=== PATIENT | male | born 1985 | race Caucasian/White ===

== ENCOUNTER 2017-04-21 21:52 | Inpatient (IN) | payer SELFPAY ==
[~2017-04-21] VITALS: Ht 177.8 cm; Wt 85.0 kg
--- NOTE | ~2017-04-21 | ER ---
PATIENT'S NAME: ROYA GRAY [facility] AGE: 31 Y [address] ROOM: [place] [address] [place] [facility] [place] DATE: 04/21/2017 ER/Outpatient Report DISCHARGE DATE: FAMILY PHYSICIAN: PHYSICIAN, UNKNOWN ATTENDING PHYSICIAN: CHANELLE SHEPHERD Admission date and time documented on the medical record. I saw the patient at 2200 hours. CHIEF COMPLAINT: Desire for detox. HISTORY OF PRESENT ILLNESS: This patient is a 31-year-old male, who over the past 24 hours has used a bowl of meth via a pipe, drank a quart of vodka, and did marijuana. He does do meth as frequent as he can, does drink vodka pretty much daily, use marijuana daily, chews tobacco occasionally. He does have some dizziness. He has had some alcohol-induced hallucinations, visual and auditory. He does have seizures with detox. He does have a past history of chronic back pain. Denies being suicidal or having suicidal ideation or threats or attempts. No recent coughs, colds, flus, fever, chills, or sweats. No chest pain. He does have some shortness of breath. No abdominal pain, nausea, vomiting, or diarrhea. No incontinence. No urinary symptoms. No joint or muscle swelling, redness, or pain. No skin eruptions or rash. No lightheadedness, dizziness, syncope, or near syncope. No fall or trauma. No headache, eyes, ears, nose, throat, neck, or spine pain. He does have a history of seizures with detox, also has alcohol-related visual and auditory hallucinations. HOME MEDICATIONS: None. ALLERGIES: NONE. SOCIAL HISTORY: Occasionally chews tobacco. Nonsmoker. Does use marijuana daily. Does use alcohol on a regular basis. Heavily uses meth as often as he can. SIGNIFICANT PAST MEDICAL HISTORY: Alcohol abuse; tobacco abuse; marijuana abuse; polysubstance abuse with methamphetamine, and marijuana; alcohol withdrawal seizures; alcoholic-induced auditory and visual hallucinations; chronic back pain; depression. OPERATIONS: None. PATIENT'S NAME: ROYA GRAY [facility] AGE: 31 Y [address] ROOM: [place] [address] [place]: [facility] [place] DATE: 04/21/2017 ER/Outpatient Report DISCHARGE DATE: FAMILY PHYSICIAN: PHYSICIAN, UNKNOWN ATTENDING PHYSICIAN: CHANELLE SHEPHERD REVIEW OF SYSTEMS: All systems reviewed by me are negative with the exception of those discussed in the history of present illness. PHYSICAL EXAMINATION: VITAL SIGNS: Temperature 96.3 tympanic, pulse 98, respirations 22, blood pressure 113/82, O2 saturation on room air is 96%. HEAD: Normocephalic. No abrasion, contusion, laceration, swelling of the scalp or face. EYES: Extraocular muscles intact. PERRL. EARS: Clear TMs bilaterally. NOSE AND THROAT: Clear. Mucous membranes moist. Breath smells of alcoholic beverage. NECK: No nuchal rigidity. No thyromegaly or cervical adenopathy. No tenderness. SPINE: Nontender. No deformity. LUNGS: Clear. Good air flow. No rales, rhonchi, or wheezes. HEART: Regular. Pulses are palpable. The patient is mildly tachypneic. ABDOMEN: Soft, nondistended, nontender. Good bowel tones. No organomegaly or abnormal mass palpable. No CVA tenderness. EXTREMITIES: No peripheral edema, cyanosis, or deformity. NEUROVASCULAR: Intact. SKIN: Clear. No skin eruptions or rash. LABORATORY DATA: Urinalysis was clear. Urine drug screen is positive for methamphetamine, marijuana. Medical blood alcohol was 0.317. Serum acetaminophen and salicylate levels were negative. CMS was normal except for low potassium 3.3, low calcium 7.9. White count 6400, 38 segs, 51 lymphocytes, 9 monos, 1 eo, 1 baso, hemoglobin 16 with hematocrit 45.7, platelet count is 209,000. EMERGENCY DEPARTMENT COURSE: I did start the patient on IV normal saline and fluids. IMPRESSION: 1. Acute alcohol intoxication and alcohol abuse with alcohol-induced visual and auditory hallucinations. 2. Meth abuse with positive methamphetamines on urine drug screen. 3. Marijuana abuse with positive marijuana on urine drug screen. 4. Depression. 5. Chronic back pain. 6. History of seizures with alcohol withdrawal. PLAN: PATIENT'S NAME: ROYA GRAY [facility] AGE: 31 Y [address] ROOM: [place] [address] [place]: [facility] [place] DATE: 04/21/2017 ER/Outpatient Report DISCHARGE DATE: FAMILY PHYSICIAN: PHYSICIAN, UNKNOWN ATTENDING PHYSICIAN: CHANELLE SHEPHERD Discussed the patient with Dr. Shepherd, hospitalist. The patient will be admitted to [facility] for detox. Started the patient on IV normal saline and fluids. MD ARCHANA CRAMER/hayl /[id number] d: 04/22/17 0329 t: 04/22/17 1808, OUTPATIENT REPORT
--- NOTE | ~2017-04-21 | HP ---
PATIENT'S NAME: ROYA GRAY [facility] AGE: 31 Y [address] ROOM: [place] [address] LOCATION: [facility] [place] ADMIT DATE: 04/21/2017 History & Physical DISCHARGE DATE: FAMILY PHYSICIAN: PHYSICIAN, UNKNOWN ATTENDING PHYSICIAN: CHANELLE SHEPHERD DATE OF SERVICE: CHIEF COMPLAINT: Intoxication of amphetamine and alcohol. HISTORY OF PRESENT ILLNESS: This is a 31-year-old male who is currently sleepy and does not want to answer any questions or give any history. The story is obtained from the ER physician and the story is that the patient has a longstanding history of using amphetamine, cannabinoid, alcohol, and also chews tobacco. The story is that the patient is intoxicated with amphetamine, alcohol, and also cannabinoid and patient came here voluntarily for detoxification. The patient denies any suicidal ideation. The patient also has history of alcohol withdrawal seizure in the past, according to the medical records. According to the ER, the patient denies any chest pain, shortness of breath, blurry vision, being aggressive, or cough. REVIEW OF SYSTEMS: As mentioned in history of present illness. All other systems were reviewed and were negative except those mentioned in history of present illness. PAST MEDICAL HISTORY: 1. Polysubstance abuse. 2. Alcohol use disorder. 3. Depression. ALLERGIES: ACCORDING TO THE LAST H AND P, NONE. HOME MEDICATIONS: According to the last H and P, none; however, has to be addressed with the patient's pharmacy in the morning by the medical staff once it is reconciled. PAST SURGICAL HISTORY: PATIENT'S NAME: ROYA GRAY [facility] AGE: 31 Y [address] ROOM: [address] [address] LOCATION: [facility] [place] ADMIT DATE: 04/21/2017 History & Physical DISCHARGE DATE: FAMILY PHYSICIAN: PHYSICIAN, UNKNOWN ATTENDING PHYSICIAN: CHANELLE SHEPHERD According to the last H and P, had multiple head injuries, but did not require any surgery in the past. FAMILY HISTORY: According to the last H and P, no history of premature coronary artery disease in the family. SOCIAL HISTORY: According to the H and P from last time, the patient chews tobacco on a daily basis and also longstanding history of alcohol and polysubstance abuse, that is diagnosed on this admission. The patient also did tell the ER that the patient has been using amphetamine for a longtime. PHYSICAL EXAMINATION: VITAL SIGNS: Temperature 97.5, heart rate 91, respirations 20, blood pressure 107/65, and saturation 96% on room air. GENERAL APPEARANCE: The patient is sleepy and does not want to answer any questions or give any history. The patient is not in acute distress. HEENT: He has remarkable pinpoint pupil bilaterally of equal size about 2-mm. The pupils are reactive to light bilaterally. Nasal turbinates are normal bilaterally. Anicteric sclerae. Oral mucosa is moist. NECK: No JVD. CARDIOVASCULAR: Regular rate and rhythm. No murmur, no rubs, no gallops. Normal S1, S2. RESPIRATORY: Clear to auscultation. No rales, no rhonchi, no wheezing, no crackles. ABDOMEN: Soft, nontender, nondistended, bowel sounds present, and no mass. EXTREMITIES: No edema in upper or lower extremities. NEUROLOGICAL: Cannot assess a full neurological exam because the patient is sleepy and does not really want to cooperate. I do appreciate pinpoint pupil bilaterally of equal size about 2-mm that is reactive to light. SKIN: No ulcer, no rash, no cyanosis. LABORATORY DATA: Troponin less than 0.04. CPK 155. White blood cells 6.4, hemoglobin 16, hematocrit 45.7, platelet 209. Glucose 86, BUN 14, creatinine 1.0, sodium 142, potassium 3.3, chloride 106, CO2 29, calcium 7.9, total protein 7.3, albumin 3.8, AST 39, ALT 38, alkaline phosphatase 118, total bilirubin 0.4, anion gap 10.3, globulin 3.5, GFR more than 60. Urinalysis show negative for UTI. Urine drug screen positive for amphetamine and also positive for cannabinoids. Alcohol level 0.317. CK-MB 1.4. Tylenol level less than 2, aspirin level less than 2.8. TSH of 1.380. IMAGING STUDIES: EKG, currently is pending. PATIENT'S NAME: ROYA GRAY [facility] AGE: 31 Y [address] ROOM: [place] [address] LOCATION: [facility] [place] ADMIT DATE: 04/21/2017 History & Physical DISCHARGE DATE: FAMILY PHYSICIAN: PHYSICIAN, UNKNOWN ATTENDING PHYSICIAN: CHANELLE SHEPHERD ASSESSMENT AND PLAN: 1. Regarding his acute encephalopathy, secondary to polysubstance abuse: The patient tested positive for amphetamine and cannabinoids, but he also has bilateral pinpoint pupils of equal size about 2-mm that is reactive to light. I already contacted the Poison Control given that our urinary drug screen showed negative opioids, I am concerned about opioid use that caused pinpoint pupils. Poison Control did mention that the urine drug screen for opioids is not a comprehensive panel; therefore, there still could be some opioid use that were not detected on the urine drug screen and recommended to try intravenous Narcan; therefore, I will be giving the patient 0.4 mg intravenous Narcan right now and can repeat as needed to see his response. Put him on ETCO2 monitor at all times. I will have the patient change to a room that is closer to the nurses' station in the morning depending on bed situation. For his amphetamine use, watch closely for mental status change, and also put him on the telemetry monitoring to monitor any event of arrhythmia. Please touch-base with Poison Control again in the morning for followup. Cardiac enzymes are negative the first set. Regarding his alcohol intoxication, the patient is at high-risk of alcohol withdrawal, I will start him on CIWA protocol. Regarding his cannabinoid overuse, nothing to do but treat symptomatically as before. Intravenous fluids for hydration. Further plan will depend on clinical course. I will also get a CT of the head without contrast to make sure there is nothing going on in the brain that could cause his encephalopathy. 2. Regarding his hypokalemia: Replace with intravenous potassium chloride. 3. Regarding his depression: Once the patient is cleared from alcohol withdrawal could consider consulting Psychiatry to see if a transfer to [facility] is warranted. 4. Regarding his deep vein thrombosis prophylaxis: The patient is on subcutaneous Lovenox. 5. Regarding his code status: He is a full code. Time spent in care on the day of admission was 35 minutes where 20 minutes was spent on coordination of the care with the Poison Control and also on the interview and physical examination. The remainder of the time was spent on chart review and talking to the ER department and also going over the plan of care with the nurse. Further plan will depend on clinical course. PATIENT'S NAME: ROYA GRAY [facility] AGE: 31 Y [address] ROOM: [address] [address] LOCATION: [facility] [place] ADMIT DATE: 04/21/2017 History & Physical DISCHARGE DATE: FAMILY PHYSICIAN: PHYSICIANSTEPHEN ATTENDING PHYSICIAN: CHANELLE SHEPHERD MD SHAYAN LUGO/laura /[id number] D: [id number] T: [id number] HISTORY & PHYSICAL
--- NOTE | ~2017-04-21 | DS ---
PATIENT'S NAME: ROYA GRAY [facility] AGE: 31 Y [address] ROOM: [place] [id number] [place] [facility] [place]: 04/21/2017 Discharge Summary DISCHARGE DATE: 04/25/2017 FAMILY PHYSICIAN: Physician, Unknown ATTENDING PHYSICIAN: Angelo Lopes ADMITTING DIAGNOSIS: Alcohol intoxication. DISCHARGE DIAGNOSIS: Alcohol intoxication, monitored for withdrawal. SECONDARY DIAGNOSES: 1. Polysubstance use. 2. Tobacco use. 3. Depression. PROCEDURE PERFORMED: Head CT. CONSULTATION: Psychiatry. HISTORY OF PRESENT ILLNESS: The patient is a 31-year-old gentleman with a past medical history of tobacco abuse, alcohol abuse, alcohol withdrawal seizure, and use of polysubstance abuse, who presents here, intoxicated with amphetamine, alcohol, and marijuana. The patient also presented for voluntary detoxification. The patient did not have any suicidal ideation on admission. HOSPITAL COURSE: Initially, the patient was in acute encephalopathy secondary to alcohol intoxication, polysubstance use. The patient was started on IV fluids and placed on CIWA protocol. The patient's symptoms improved. The patient was monitored for alcohol withdrawal as the patient has had history of seizure secondary to alcohol withdrawal. During stay, the patient's need for Ativan decreased. The patient was seen by Psych and recommended for transfer when the patient was stable. In the past 2 days, the patient's CIWA score was low. The patient was transferred to [facility]. CONDITION: Stable. DISPOSITION: The patient is going to go to [facility] by voluntarily. His friend's are going to take him up. DISCHARGE MEDICATION: Please see MAR. DISCHARGE INSTRUCTION: To follow up with [facility]. FOLLOWUP: Follow up with [facility]. PATIENT'S NAME: ROYA GRAY [facility] AGE: 31 Y [address] ROOM: [address] [address] [place] [facility] [place]: 04/21/2017 Discharge Summary DISCHARGE DATE: 04/25/2017 FAMILY PHYSICIAN: Physician, Unknown ATTENDING PHYSICIAN: Angelo Lopes PHYSICAL EXAMINATION: VITAL SIGNS: Stable. GENERAL APPEARANCE: The patient is alert and awake in no acute distress. HEART: Regular rate and rhythm. No murmurs, rubs, or gallops. CHEST: Clear to auscultation bilaterally. ABDOMEN: Soft, nontender, nondistended. Bowel sounds present. SKIN: Warm to touch. HEPATOLOGY PHYSICIAN: Alert and oriented x3. Motor and sensory grossly intact. MD GUERA HAYWARD/laura /[id number] d: 04/26/17621 t: 04/26/17 0935, DISCHARGE SUMMARY
[~2017-04-21 21:52] MED LIST: ADVIL200 MG PO; CELEXA20 MG PO; DILANTIN100 MG PO; NEURONTIN300 MG PO; NICORETTE4 MG PO; PHENYTOIN SODI300 MG PO; TREXAN (REVIA)50 MG PO; VISTARIL50 MG PO
[2017-04-21 22:41] LABS: BASOPHIL # 0.1 K/uL (0.0-0.2); BASOPHIL % 0.9 %; EOSINOPHIL # 0.1 K/uL (0.0-0.5); EOSINOPHIL % 0.9 %; HEMATOCRIT 45.7 % (37.0-53.0); IMMATURE GRANULOCYTE % 0.3 %; LYMPHOCYTE # 3.3 K/uL (0.8-4.0); LYMPHOCYTE % 50.9 %; MCV 94.2 fl (83.0-98.0); MONOCYTE # 0.6 K/uL (0.0-1.0); MONOCYTE % 8.9 %; MPV 9.5 fl (9.4-12.4); NEUTROPHIL # (ANC) 2.4 K/uL (1.4-9.0); NEUTROPHIL % 38.1 %; NRBC % 0 /100WBC (0-0.00); PLATELET COUNT 209 K/uL (150-450); RBC 4.85 M/uL (4.00-6.00); RDW-CV 12.8 % (11.9-14.6); WBC 6.4 K/uL (4.0-11.0)
[2017-04-21 23:01] LABS: BILIRUBIN URINE NEGATIVE (NEGATIVE); BLOOD URINE NEGATIVE /UL (NEGATIVE); COLOR URINE YELLOW (YELLOW); GLUCOSE URINE NEGATIVE (NEGATIVE); KETONE URINE NEGATIVE (NEGATIVE); LEUKOCYTES URINE NEGATIVE /UL (NEGATIVE); NITRITE URINE NEGATIVE (NEGATIVE); PH URINE 6.5 (4.0-8.0); PROTEIN URINE NEGATIVE (NEGATIVE); SPEC GRAVITY URINE 1.005 (1.003-1.035); TURBIDITY URINE CLEAR (CLEAR); UROBILINOGEN URINE NORMAL (NORMAL)
[2017-04-21 23:02] LABS: ALBUMIN 3.8 gm/dL (3.5-5.0); ALK PHOS 118 IU/L (33-138); ALT 38 IU/L (12-78); ANION GAP 10.3 (10.0-19.0); AST 39 IU/L (10-40); BLOOD UREA NITROGEN 14 mg/dL (6-24); CALCIUM 7.9 mg/dL (8.5-10.5); CHLORIDE 106 mMol/L (96-110); CO2 29 mMol/L (22-32); ESTIMATED GFR (MDRD EQUATION) > 60; POTASSIUM 3.3 mMol/L (3.7-5.1); SODIUM 142 mMol/L (135-145); TOTAL BILIRUBIN 0.4 mg/dL (0.0-1.5); TOTAL PROTEIN 7.3 g/dL (6.0-8.4)
[2017-04-21 23:21] LABS: BARBITURATE NEGATIVE (NEGATIVE); COCAINE NEGATIVE (NEGATIVE); OPIATES NEGATIVE (NEGATIVE)
[2017-04-21 23:22] LABS: AMPHETAMINE POSITIVE (NEGATIVE)
--- NOTE | 2017-04-22 01:37 | NUR ---
Patient admitted from ER at 0030. Talkative the first 5 minutes upon arrival, then has been sleeping soundly.
[2017-04-22 01:49] LABS: CPK 155 IU/L (35-332)
--- NOTE | 2017-04-22 04:16 | NUR ---
Significant Event: Admitted from ER at 0030 for Detox (Bowl of Meth and quart of Vodka according to patient, who came in voluntarily). Alert/ disoriented to place and time. Was extremely anxious/talkative the first 10 minutes upon arrival, then has been sleeping soundly. Dr Lopes evaluated him. Have Banana Bag infusing 150ml/hr to left wrist; also KCl infusing at 67.5ml/hr. Has Tele. Both pupils [place]. Per orders[place] 0[place] [address], 0239. Went down for CT of his head. Became slightlyagitated, then back to sleep. Have ETCO2 monitoring continuously, mostly upper 30s to low 40s. No void yet. VSS. Follow up:
[2017-04-22 04:45] LABS: ALBUMIN 3.2 gm/dL (3.5-5.0); ALK PHOS 95 IU/L (33-138); ALT 36 IU/L (12-78); AST 36 IU/L (10-40); TOTAL BILIRUBIN 0.4 mg/dL (0.0-1.5); TOTAL PROTEIN 6.4 g/dL (6.0-8.4)
--- NOTE | 2017-04-22 05:39 | NUR ---
Seizure pads placed on bed side railing upper end.
--- NOTE | 2017-04-22 15:00 | NUR ---
A - PT SCREENED D/T [facility] DETOX. ATTEMPTED TO VISIT PATIENT BUT ASLEEP, NOT ABLE TO INTERVIEW. PER RECORD, WT STABLE, ABOUT 2.6% WT LOSS IN 5 MONTHS, NOT SIGNIFICANT. HT: 182.88 CM, WT: 187#, BMI: 25.4, IBW: 80.9 KG, %IBW: 105% LABS: K+ 3.3, ALB 3.2, EtOH 0.317 MEDS: THIAMINE, FOLIC ACID, HALDOL, VALIUM DIET: REGULAR. REFUSED BREAKFAST THIS MORNING. EST NEEDS: [id number] KCAL (25-30 KCAL/KG IBW), 81-97 GRAMS PROTEIN (1-1.2 GRAMS/KG IBW), FLUID NEEDS: 1ML/KCAL D - INADEQUATE ORAL INTAKE RELATED TO DECREASED APPETITE SECONDARY TO EtOH USE AND GOING THROUGH WITHDRAWAL EVIDENCED BY REFUSED X1 MEAL. I - WILL TRIAL ENSURE ENLIVE BID. M/E - GOAL: PT WILL BE ABLE TO TOLERATE >50% OF MEALS AND AT LEAST ONE ORAL SUPPLEMENT PER DAY IN 4-6 DAYS.
--- NOTE | 2017-04-22 16:02 | NUR ---
Assumed Care Management of this patient from Saira. Attempted to meet with patient at 1355 and he was sleeping. I placed a call to [facility] [place] and informed them that patient will not be coming today as he is not medically cleared. I will contact them tomorrow once we know more about how patient is doing.
--- NOTE | 2017-04-22 16:48 | NUR ---
Patient is alert and oriented when awake. He has been sleeping most of the day. When he was awake he became agitated, anxious and had a massive headache. Most of this is from not being able to have chewing tobacco. Nicoderm patch to L) upper arm, he states it does not help. He scored an 18 on his CIWA, 2mg Ativan PO given and put him back to sleep. He did state he wants to go to an inpatient rehab facility but also that he will check himself out of the hospital if he can't have chewing tobacco. IV in the L) forearm is infusing NS at 100ml/hr. He is refusing to wear the EtCO2 and tele. States he has been drinking for over 1/2 his life and doing meth for the last 2 weeks straight with no sleeping.
--- NOTE | 2017-04-23 05:02 | NUR ---
Significant Event: 1 ASSIST TO THE BATHROOM. ON ROOM AIR. TYLENOL AT 2235. HAS BEEN SLEEPING ALL SHIFT EXCEPT ONCE TO GO TO THE BATHROOM. WHEN WAS UP PATIENT SCORED A 7 ON THE CIWA SCORE, BUT THEN FELL BACK ASLEEP. Follow up:
[2017-04-23 05:05] LABS: BASOPHIL % 0.5 %; EOSINOPHIL # 0.1 K/uL (0.0-0.5); EOSINOPHIL % 1.1 %; HEMOGLOBIN 13.1 g/dL (12.0-17.0); IMMATURE GRANULOCYTE % 0.2 %; LYMPHOCYTE # 2.2 K/uL (0.8-4.0); LYMPHOCYTE % 36.1 %; MCHC 34.5 gm/dL (32.0-36.5); MCV 95.7 fl (83.0-98.0); MONOCYTE # 0.4 K/uL (0.0-1.0); MONOCYTE % 5.7 %; MPV 9.8 fl (9.4-12.4); NEUTROPHIL # (ANC) 3.4 K/uL (1.4-9.0); NEUTROPHIL % 56.4 %; NRBC % 0 /100WBC (0-0.00); PLATELET COUNT 144 K/uL (150-450); RBC 3.97 M/uL (4.00-6.00); RDW-CV 12.8 % (11.9-14.6); WBC 6.1 K/uL (4.0-11.0)
[2017-04-23 05:22] LABS: ANION GAP 10.8 (10.0-19.0); BLOOD UREA NITROGEN 10 mg/dL (6-24); CALCIUM 7.9 mg/dL (8.5-10.5); CHLORIDE 109 mMol/L (96-110); CO2 26 mMol/L (22-32); CREATININE 0.8 mg/dL (0.6-1.3); ESTIMATED GFR (MDRD EQUATION) > 60; MAGNESIUM 1.6 mg/dL (1.8-2.6); POTASSIUM 3.8 mMol/L (3.7-5.1); SODIUM 142 mMol/L (135-145)
--- NOTE | 2017-04-23 11:16 | NUR ---
Patient has been sleeping all morning per patient's nurse Anusha. Spoke with Malissa Mcgee APRN following patient and she questioned if [facility] will accept patient on discharge. Phone call to [facility] and spoke to Carmen. She states they attemtped to do the CD eval yesterday but patient had just received meds and was sleeping. She forwarded me to the Outpatient clinic to discuss the Psych Eval. I spoke to outpatient clinic and they state that Dr. Brock noted patient would be a direct admit to [facility] once medically cleared. I notified Malissa Mcgee of this and informed her that based on his note they are not planning on sending anyone else over for the Psych consult. I did tell the outpatient clinic that I am not sure patient will come voluntarily to [facility]. Will continue to monitor and offer supports as needed.
--- NOTE | 2017-04-23 14:15 | NUR ---
Significant Event: Pt denies pain. CIWA early am was a 1, at noon it was a 7. Pt has mild agitation, mild tremors, and mild sweating, will continue to monitor. Up to br otherwise sleeps most of shift. Ate breakfast. Mg level was 1.6, tele placed and receiving 2g IV mag x1. VS stable. Pt's mom called and states that he can get violent with detox, will monitor. Follow up:
--- NOTE | 2017-04-24 04:34 | NUR ---
Significant Event: Patient is alert and oriented x 3. VSS on room air. Up with SBA. On telemetry, no calls. Left hand IV with NS running at 100 ml/hr. Initial CIWA score was 10, reassessed 1 hour later it was 7. Patient has mild tremors, mild sweating. Patient has slept well this shift. Tylenol given for back pain/headache at 1941. Patient is pleasant and cooperative with cares. Follow up:
[2017-04-24 06:02] LABS: ANION GAP 9.7 (10.0-19.0); BLOOD UREA NITROGEN 10 mg/dL (6-24); CALCIUM 7.8 mg/dL (8.5-10.5); CHLORIDE 110 mMol/L (96-110); CO2 26 mMol/L (22-32); CREATININE 0.8 mg/dL (0.6-1.3); ESTIMATED GFR (MDRD EQUATION) > 60; MAGNESIUM 1.9 mg/dL (1.8-2.6); POTASSIUM 3.7 mMol/L (3.7-5.1); SODIUM 142 mMol/L (135-145)
--- NOTE | 2017-04-24 19:16 | NUR ---
Significant Event: Alert and orient X 3. Up independent in room. Peripheral IV to left hand with NS running at 100 ml/hr. Vital signs stable. CWA this shift 4 and 7 with tylenol given due to headache. Posssible transfer to [facility] tomorrow. Pleasant and cooperative with cares. Follow up:
--- NOTE | 2017-04-25 05:25 | NUR ---
Significant Event: PATIENT IS ALERT AND ORIENTATED X3 AMBULATES INDEPENDENTLY IN ROOM. VSS WNL. IV TO L HAND WITH FLUIDS RUNNING AT 100ML/HR. NO PRN MEDS GIVE THIS SHIFT. PATIENT SLEPT COMFORTABLY. SHOWERED BEFORE BED. HAS PLACEMENT AT [facility] PLAN IS TO TRANSFER THIS AM. CWIA 7. WITHDRAWN Follow up:
--- NOTE | 2017-04-25 13:36 | NUR ---
Transfer Note: Patient has been cooperative with cares. Up in room independently. Appetite fair. Taking fluids well and voiding well. Complains of headache, has been sleeping today and wakes for assessments. Denies need for Tylenol for headache.
--- NOTE | 2017-04-25 19:36 | NUR ---
Significant event: Dismissed to [facility] with friend driving. Patient alert and oriented. Report called to Minerva Pelletier RN at 1450. Patient cooperative with cares.
[2017-04-30] MEDS ORDERED: CELEXA20 MG PO (09:33)
[2017-04-30] MEDS ORDERED: NEURONTIN300 MG PO (09:34)
[2017-04-30] MEDS ORDERED: VISTARIL50 MG PO (09:35)
[2017-04-30] MEDS ORDERED: TREXAN (REVIA)50 MG PO (09:37)
[2017-04-30] MEDS ORDERED: [UNRECOGNIZED DRUG - OTHER] TOP (09:38)
[2017-04-30] MEDS ORDERED: PHENOBARBITAL30 MG PO (09:40)
== END 2017-04-25 16:15 | disposition other institution (70) | DRG 896 ==
LOC: GMED 21:52 → GMSU 23:48
PROVIDERS: Emergency Medicine; Nurse Practitioner Family; ADMIT Internal Medicine
DX: F10.129 Alcohol abuse with intoxication, unspecified (principal); G93.40 Encephalopathy, unspecified; F32.9 Major depressive disorder, single episode, unspecified; E87.6 Hypokalemia; F17.210 Nicotine dependence, cigarettes, uncomplicated; F15.10 Other stimulant abuse, uncomplicated
CPT/HCPCS: G0480; J1650; J2060; J2310; J3411; J3475; J3480; J7030; J7050